=== PATIENT | male | born 1955 | race Caucasian/White ===

== ENCOUNTER 2019-08-18 14:21 | Inpatient (IN) | payer BC ==
[~2019-08-18] VITALS: Ht 182.9 cm; Wt 101.2 kg
[2019-08-18 14:28] VITALS: BP 146/77
[2019-08-18 14:29] VITALS: BP 146/77
[2019-08-18] MEDS ORDERED: METFORMIN HCL500 M3 PO (14:42)
[2019-08-18] MEDS ORDERED: JARDIANCE10 MG PO (14:43)
[2019-08-18] MEDS ORDERED: STATIN (14:43)
[2019-08-18 14:58] LABS: BASOPHILS 0.6 % (0.0-2.0); EOSINOPHILS 1.2 % (0.0-3.0); HEMATOCRIT 39.5 % (42.0-52.0); HEMOGLOBIN 13.7 gm/dL (14.0-18.0); LYMPHOCYTES 22.8 % (24.0-44.0); MCH 31.8 pg (26.0-34.0); MCHC 34.7 g/dL (28.0-37.0); MCV 91.6 fL (80.0-100.0); MONOCYTES 6.8 % (1.0-8.0); PLATELET COUNT 223 thou/uL (150-400); POLYS 68.6 % (36.0-66.0); RBC 4.31 mil/uL (4.50-6.00); RDW 13.3 % (10.5-14.5); WBC 5.9 thou/uL (4.0-11.0)
[2019-08-18 15:13] LABS: ANION GAP 12 mmol/L (7-16); BUN 19 mg/dL (7-18); CALCIUM 8.8 mg/dL (8.5-10.1); CHLORIDE 104 mmol/L (98-107); CO2 22 mmol/L (21-32); CREATININE 1.2 mg/dL (0.7-1.3); GLUCOSE 105 mg/dL (74-106); POTASSIUM 3.5 mmol/L (3.5-5.1); SODIUM 138 mmol/L (136-145)
[2019-08-18 15:22] LABS: ALBUMIN 4.1 g/dL (3.4-5.0); SGOT 61 U/L (15-37); SGPT 66 U/L (30-65); TOTAL BILIRUBIN 0.9 mg/dL (<0.1-1.0); TOTAL PROTEIN 7.2 g/dL (6.4-8.2); TROPONIN-I <0.06 ng/mL (<0.06)
[2019-08-18 16:59] VITALS: BP 141/72
--- NOTE | 2019-08-18 18:58 | H ---
[facility] [place] [address] HISTORY AND PHYSICAL Name: IRINEO MCCARTHY Room #: 170-8 ADM IN M.R.#: [id number] Admission: 08/18/19 Attend Phys: Isaiah Wilkerson, Discharge: Date of : 59 Report #: [id number] THIS REPORT FOR: cc: Ankit Horowitz David J. DO Clymer, David J. MD ~ CC: Ankit Jones DATE OF SERVICE: 08/18/2019 CHIEF COMPLAINT: Fractures right and left patella with open wound, right knee. HISTORY OF PRESENT ILLNESS: This active, independent, healthy and fit 63-year-old gentleman was working on a roof today when he fell about 11 feet. He landed hard on both knees resulting in bilateral knee injuries. He also has a rather minor left elbow contusion and abrasion, but has no other complaints of significant injury. He states he did strike his head and has a laceration over the left eyebrow. He had no loss of consciousness. He is not having any headache or any other significant neurologic symptoms or complaints at this time. At the time of my evaluation, he is accompanied by his spouse. He is alert and oriented and recalls the event. He states he has symptoms of both knees and the left forehead, but no other significant complaints. He is alert and oriented. The neck is currently protected with a cervical collar, but he seems to have no subjective discomfort with movement about the neck and has no subjective complaints there. The chest reveals no obvious injuries and he has no shortness of breath. The abdomen is soft and nontender. The pelvis is stable and nontender. He has no complaints in the lower back and no complaints about either the right or left hip. The upper extremities reveal good movement at the right shoulder, elbow, wrist and hand without discomfort. Neurologic status is normal. The left upper extremity reveals a small abrasion over the posterolateral aspect of the left elbow, but the elbow demonstrates good alignment, range of motion with good stability and no discomfort. The wrist and hand are normal. There is no evidence of significant injuries in either upper extremity. The right lower extremity reveals good movement at the hip without much joint pain. The thigh is stable and well aligned. The right knee demonstrates a transverse laceration over the patella. The patella appears to be fractured and displaced moderately. The knee itself demonstrates satisfactory alignment and satisfactory stability on varus and valgus stress. The lower leg, foot, and ankle appear to be normal. The left lower extremity also reveals good movement of the left hip without joint pain. The left knee demonstrates [place] [address] HISTORY AND PHYSICAL Name: IRINEO MCCARTHY Room #: 170-8 ADM IN M.R.#: [id number] Admission: 08/18/19 Attend Phys: Isaiah Wilkerson, Discharge: Date of : 59 Report #: [id number] over the anterior aspect of the knee and the patella is uncomfortable, but seems to be intact and stable. The knee is stable to varus and valgus stress. The lower leg, foot, and ankle appear to be normal. X-rays of the left knee reveal moderately comminuted patellar fracture, but without significant displacement. Joint surface alignment and overall alignment appears to be satisfactory. The bony architecture of the distal femur and the proximal tibia also appeared to be intact without any evidence of bony injury. The x-rays of the right knee reveal a comminuted transverse fracture in the mid patella with displacement and rotational deformity. The distal femur and proximal tibia appear to be intact without bony injury. IMPRESSION: Bilateral patellar fractures with a closed and generally stable fracture on the left side, but an open unstable fracture on the right side. I have discussed this with the patient and his . I have explained that the open right knee wound should go to the operating room whenever we can for a general debridement and irrigation. At this point, I think the wound appears to be mildly contaminated and probably would allow for repair of the patellar fracture at that time. He has no other apparent injuries and I think we will see if we can go either this evening or tomorrow morning for surgical repair. I am hoping that we can manage the opposite left patellar fracture in a nonsurgical fashion with splint protection and time. The patient's understand and wish to proceed with surgery whenever scheduling will allow. <ELECTRONICALLY SIGNED> By: Ankit Ocasio MD 08/18/19 1858 [id number] [id number] Ankit Ocasio MD /nt
[2019-08-18 19:40] VITALS: BP 139/75
[2019-08-18 22:55] LABS: URINE BILIRUBIN NEGATIVE (Negative); URINE BLOOD 2+ (Negative); URINE CLARITY CLEAR; URINE COLOR YELLOW; URINE GLUCOSE-RANDOM* 3+ (Negative); URINE KETONES 2+ (Negative); URINE LEUKOCYTES-REFLEX NEGATIVE (Negative); URINE NITRITE-REFLEX NEGATIVE (Negative); URINE PROTEIN (DIPSTICK) NEGATIVE (Negative); URINE UROBILINOGEN 0.2 E.U./dl (0.2-1.0)
[2019-08-18 23:03] LABS: AMP/METHAMP Negative (Negative); BARBITURATES Negative (Negative); BENZODIAZEPINES Negative (Negative); COCAINE Negative (Negative); METHADONE Negative (Negative); OPIATES POSITIVE (Negative); PCP Negative (Negative); URINE RBC 3-10 Few /HPF (0-2)
[2019-08-18 23:04] LABS: BACTERIA-REFLEX 1-9 Few /HPF (None Seen); CASTS None Seen /LPF (None Seen); CRYSTALS None Seen /LPF (None Seen); SQUAMOUS 0-3 Few /LPF (0-3); URINE WBC-REFLEX None Seen /HPF (0-5)
[2019-08-18 23:59] VITALS: BP 146/80
[2019-08-19 00:21] VITALS: BP 126/80
[2019-08-19 01:50] VITALS: BP 140/77
--- NOTE | 2019-08-19 02:55 | NUR ---
PT TO UNIT FROM PACU AROUND 1914. ORIENTED TO UNIT, STAFF AND USE OF CALL LIGHT. ADMISSION ASSESSMENT COMPLETED, CONSENTS SIGNED. PT REPORTS PAIN IN BOTH KNEES, MORE IN THE RIGHT KNEE. IV MEDICAITON AND PO TRIED WITH LITTLE RELIEF. IMMOBILIZER SHANTAL LEGS, WRAPPED IN MICHAEL BANDAGES WELL - BOTH D/C/I. ICE PACKS APPLIED. VSS. PT VOIDING USING THE URINAL. HAS STITCHES ABOVE LEFT EYEBROW. PT REPORTS THAT HIS FEET WILL FALL TO THE SIDE WHICH INCREASES THE PAIN, THIS NURSE PUT A WEDGE AND PILLOWS TO HOLD HIS FEET UP AND HE STATES IT HELPS A LOT. ATE A SANDWICH TONIGHT- TOLERATED WELL. 1/3 ANTIBIOTIC GIVEN. WILL CONTINUE WITH PAIN AIDAN PARIKH.
[2019-08-19 03:07] VITALS: BP 137/76
[2019-08-19 05:14] LABS: HEMATOCRIT 37.4 % (42.0-52.0)
[2019-08-19 05:26] LABS: POTASSIUM 4.7 mmol/L (3.5-5.1)
[2019-08-19 07:40] VITALS: BP 113/66
--- NOTE | 2019-08-19 12:01 | O ---
[facility] [place] [address] OPERATIVE REPORT Name: IRINEO MCCARTHY Room #: 438-P ADM IN M.R.#: [id number] Admission: 08/18/19 Attend Phys: Isaiah Wilkerson, Discharge: Date of : 59 Report #: [id number] THIS REPORT FOR: cc: Ankit Horowitz David J. DO Clymer, David J. MD ~ CC: Ankit Wilkerson DATE OF SERVICE: 08/18/2019 PREOPERATIVE DIAGNOSIS: Open comminuted fracture, right patella. POSTOPERATIVE DIAGNOSIS: Open comminuted fracture, right patella. PROCEDURES: Debridement and open reduction and internal fixation of right patellar fracture. SURGEON: Ankit Ocasio MD INDICATIONS: This healthy, active 63-year-old gentleman fell about 11 feet while repairing a roof injuring both patella. A comminuted, but nondisplaced fracture on the left side is treated nonsurgically. On the right, he has an open more severely comminuted and displaced fracture of the patella. We elected to go ahead with surgical repair. DESCRIPTION OF PROCEDURE: The patient was taken to the operating room where he was placed under general anesthesia. Prophylactic intravenous antibiotics were administered. The right knee wound had been previously thoroughly irrigated and cleansed in the Emergency Room and was once again irrigated and cleansed in the OR prior to the case. The right knee and leg were then meticulously prepped and draped. A thigh tourniquet was applied and inflated to 300 mmHg. The traumatic laceration is about 2-3 cm and fairly transverse across the mid patella. The skin edges here were excised and the incision was extended in a proximal and distal direction creating a long S-shaped incision. There was some damage to the subcutaneous tissues, which were also debrided. There was no apparent debris or contamination in the wound. The fracture was found to be quite comminuted and several pieces were loose and needed to be removed and discarded. The joint was inspected and no debris was identified. The joint and the area of fracture was aggressively irrigated with over 1 liter of antibiotic irrigation. The surfaces and soft tissues appeared to be clean without any contamination and I felt fixation and closure was most reasonable. Due to the comminution, a clearly anatomic and secure reduction was not feasible. The larger fragments were brought back into improved position and held initially with large bone clamps. There were several smaller fragments that were unstable and simply needed to be removed. Other areas of comminution made reduction and [address] [address] OPERATIVE REPORT Name: IRINEO MCCARTHY Room #: 438-P [facility] IN M.R.#: [id number] Admission: 08/18/19 Attend Phys: Isaiah Wilkerson, Discharge: Date of : 59 Report #: [id number] realignment somewhat difficult. Nevertheless, an adequate reduction was accomplished. This was then secured using four K wires passed in a vertical direction. These seemed to add nicely to the overall stability despite the degree of comminution. Once these were in place and secure, an 18-gauge wire was passed beneath the K wires just above and below the patella and crossed over the anterior aspect in a tension band wire configuration. Bone clamps were used to compress the fragments and the wire was tensioned gradually, which resulted in additional reduction and secure fixation of the fracture. C-arm was used to visualize the fracture fragments and the pins and wire, although there was still obvious fracture lines suggesting there was still an imperfect reduction. Overall, the reduction seemed adequate and the articular cartilage surfaces appear to be adequately aligned and seemed satisfactory when palpated digitally. The pins were then cut off at appropriate levels and the distal aspect of the pins bent to avoid migration. The tension band wire was cut and its tail was chipped down inward into one of the bony recesses to avoid skin pressure. The tourniquet was deflated. Good hemostasis was confirmed. The entire wound was further and copiously irrigated. The skin edges were then reapproximated using 2-0 Monocryl, the subcutaneous tissues and dawn in the skin. A sterile dressing was applied and a knee immobilizer brace placed holding the knee in full knee extension. At the conclusion of the right knee case, the left knee was once again inspected. There was rather significant abrasion on the anterior aspect of the knee and this was once again cleansed and then a sterile dressing applied. The patella itself, although comminuted on x-ray appears to be stable to palpation and I expect will heal in nicely with nonsurgical management. A knee immobilizer brace was placed on the left side as well. The patient was then awakened and returned to recovery room in good condition. <ELECTRONICALLY SIGNED> By: Ankit Ocasio MD 08/19/19 1201 [id number] Ankit Ocasio MD /nt
--- NOTE | 2019-08-19 14:31 | NUR ---
PT ADMITTED RELATED TO BILATERAL PATELLA FX'S S/P ORIF RT PATELLA. CM REVIEWED CHART AND SPOKE WITH CARE TEAM. CM CALLED AND SPOKE WITH PT OVER [facility] PHONE THIS AFTERNOON. PT APPEARED TO BE A&O X4. CM ROLE INTRODUCED. PT INDICATED THAT HE LIVES IN A HOUSE WITH IS WITH 1 STEPS TO ENTER AND THEN ALL NEEDS ON 1 LEVEL. PT WAS ISSUED A FWW FOR HOME USE BY PROVIDER [employer]US. PT TO HAVE HH PT, OT, AND NURSING. PT INDICATED NO PREFERENCE IN PROVIDER. REFERRAL TO BE SENT TO [facility]. CARE TEAM INDICATED THAT PT IS MEDICALLY STABLE TO DC HOME THIS DAY. PT'S SPOUSE TO PROVIDE TRANSPORT HOME.
[2019-08-19 14:42] VITALS: BP 113/66
--- NOTE | 2019-08-19 16:06 | NUR ---
ASSUMED CARE OF THE PT AT 0700. PT WORKED WITH PT 2X AND WAS CLEARED TO GO HOME. C/O NUMBNESS IN BOTH FEET, CAP REFILL LESS THAN 3, SKIN WARM TO TOUCH AND PT ABLE TO MOVE TOES. PAIN CONTROLLED BY PAIN MEDS, SEE EMAR. ICE PACKS ON BOTH KNEES. BS CONTROLLED BY INSULIN, SEE EMAR. R AC AND L HAND IV REMOVED. PT D/C'D TO HOME. PT WENT TO FILL RX'S AT [facility] AND PHARMACY STATED THAT THEY NEEDED "DOCTOR TO PRINT NAME ON THE SCRIPT". CALLED DOCTOR OFFICE AND SPOKE DOCTOR'S NURSE, THEY STATED, "WILL CALL PHARMACY, CONTACTED PT AND LET THEM KNOW. PT D/C'D
== END 2019-08-19 16:22 | disposition home health service (06) | DRG 517 ==
LOC: ER 14:21 → 4S 16:59 → ER 16:59 → EROBS 17:05 → 4S 17:05
PROVIDERS: Orthopaedic Surgery; Student in an Organized Health Care Education/Training Program; ADMIT Surgery
DX: S82.041B Displaced comminuted fracture of right patella, initial encounter for open fracture type I or II (principal); E11.9 Type 2 diabetes mellitus without complications; S82.042A Displaced comminuted fracture of left patella, initial encounter for closed fracture; E78.5 Hyperlipidemia, unspecified; E78.00 Pure hypercholesterolemia, unspecified; W18.30XA Fall on same level, unspecified, initial encounter; Y93.89 Activity, other specified; Y92.89 Other specified places as the place of occurrence of the external cause; Y99.8 Other external cause status; Z79.4 Long term (current) use of insulin; Z79.84 Long term (current) use of oral hypoglycemic drugs
CPT/HCPCS: 10100; 10195; 50101; 50386; 51275; 51412; 56525; 57091; 62110; 62900; 70005

== ENCOUNTER → 2020-06-15 | Outpatient (CLI) | payer BC ==
[~2020-06-15] MED LIST: JARDIANCE10 MG PO; METFORMIN HCL500 M3 PO; STATIN
== END ==
LOC: LAB 11:56
PROVIDERS: ATTEND Anesthesiology
DX: Z01.812 Encounter for preprocedural laboratory examination (principal); Z20.822 Contact with and (suspected) exposure to COVID-19

== ENCOUNTER → 2020-11-13 | Outpatient (CLI) | payer BC | LOC: SJCVCIMAG 08:39 | PROVIDERS: ATTEND Internal Medicine | DX: I34.0 Nonrheumatic mitral (valve) insufficiency (principal); I25.10 Atherosclerotic heart disease of native coronary artery without angina pectoris; R93.1 Abnormal findings on diagnostic imaging of heart and coronary circulation ==

== ENCOUNTER → 2020-11-23 | Outpatient (CLI) | payer BC | LOC: SJCVCIMAG 07:19 | PROVIDERS: ATTEND Internal Medicine | DX: R00.0 Tachycardia, unspecified (principal); I49.3 Ventricular premature depolarization; R06.00 Dyspnea, unspecified; R53.83 Other fatigue; R93.1 Abnormal findings on diagnostic imaging of heart and coronary circulation; E78.5 Hyperlipidemia, unspecified; E11.9 Type 2 diabetes mellitus without complications; Z79.82 Long term (current) use of aspirin; Z79.899 Other long term (current) drug therapy ==

== ENCOUNTER → 2020-12-03 | Outpatient (CLI) | payer BC ==
[~2020-12-03] VITALS: Ht 182.9 cm; Wt 95.3 kg
[~2020-12-03] MED LIST changes: +ASA81BEC PO; +LIPITOR40 MG PO; +METFORMIN HCL1000 MG PO; +REVATIO20 MG PO
[2020-12-03 08:31] VITALS: BP 123/69
--- NOTE | 2020-12-03 11:42 | CATHLAB ---
[facility] [address] INVASIVE PROCEDURE REPORT Name: IRINEO MCCARTHY Room #: REG SIMÓN Russell.#: [id number] Admission: 12/03/20 Attend Phys: Anthony Varghese MD Discharge: Date of : 59 Report #: [id number] THIS REPORT FOR: cc: Ankit Horowitz David J. DO Park, Jin S. MD ~ APPROVED REPORT Study performed: 12/03/2020 08:54:11 Patient Details Patient Status: Out-Patient Room #: The patient is a 65 year-old male Event Personnel Anthony Varghese Chocolate Refining Roller, Zoraida Marquez RTR Monitor, Abhilash Murillo RN RN, Tyrel Mccarthy RTR Scrub, Joanie Kidd RN fixed income trading vice president Performed Art Access - R femoral artery* Left Heart Cath w/or w/o Coronaries [id number] C Hemostasis w/ Mynx 80428 Initial Mod Sed Same Phys/QHP Gr5y [id number] Mod Sed Same Phys/QHP Ea [id number] Indication Dyspnea, Positive stress test Risk Factors HypercholesterolemiaPhysical Activity, Coronary Artery Disease, Diabetes Procedure Narrative The Right Groin^ was infiltrated with 1% Lidocaine subcutaneous anesthesia. A PINNACLE 4FR Sheath #[id number] sheath was inserted into the RFA^. Coronary angiography was performed using coronary diagnostic catheters. The right coronary system was accessed and visualized with a JR4 catheter. The left coronary system was accessed and visualized with a JL4 catheter. The left ventricle was accessed and visualized with a JL4 catheter. Hemostasis was obtained with manual pressure following sheath removal without any complications. The patient tolerated the procedure well and there were no complications associated with the procedure. There was no hematoma. [facility] [address] [place] [address] INVASIVE PROCEDURE REPORT Name: IRINEO MCCARTHY Room #: REG [facility]#: [id number] Admission: 12/03/20 Attend Phys: Anthony Varghese MD Discharge: Date of : 59 Report #: [id number] Intraoperative Conscious Sedation Sedation start time: 9:33 Case end Time: 10:02 Fentanyl 50 mcg Versed 1 mg Fluoro Time: 1.30 minutes Dose: DAP 4211.60 cGycm2 628 mGy Contrast Type and Amount: Omnipaque 55 ml Coronary Angiography The patient's coronary anatomy is right dominant. Diagnostic Cath Left Main The left main artery is a large-caliber vessel, appears angiographically normal. LAD The proximal LAD is ectatic with mild calcifications. There is mild disease in this area. The distal LAD terminates at the apex. Diagonal 1 This is a moderate-sized caliber vessel, patent with no flow-limiting lesions. Circumflex The proximal left circumflex artery is ectatic with mild disease. OM1 This is a moderate-sized caliber vessel, patent with no flow-limiting lesions. OM2 This is a small caliber vessel, patent with no flow-limiting lesions. Right Coronary The proximal and mid segments of the RCA are ectatic with mild disease. R PDA This is a moderate-sized caliber vessel, patent with no flow-limiting lesions. RPLV This is a moderate-sized caliber vessel, patent with no flow-limiting lesions. Left Ventriculography Left Ventriculography was not performed. Ejection Fraction was 50% based off patient's Echocardiogram. An LVEDP was measured and there is no gradient across the outflow tract. Hemodynamics The aortic pressure is 128/62 mmHg with a mean of 88 mmHg. The left ventricular pressure is 129/3 mmHg with a mean of mmHg. The left ventricular end diastolic pressure is 13 mmHg. Conclusion 1. There are ectatic segments in the epicardial vessels. [facility] [address] [place] [address] INVASIVE PROCEDURE REPORT Name: IRINEO MCCARTHY Room #: REG CL [facility]#: [id number] Admission: 12/03/20 Attend Phys: Anthony Varghese MD Discharge: Date of : 59 Report #: [id number] 2. There is mild, nonobstructive coronary artery disease. 3. This is a right dominant system. 4. There is lownormal LV systolic function. 5. Recommend guideline directed medical therapy. <ELECTRONICALLY SIGNED> By: Anthony Varghese MD 12/03/20 1142 1142 1142 Anthony Varghese MD /INF
== END | disposition home or self-care (01) ==
LOC: CATH 06:45
PROVIDERS: ATTEND Internal Medicine Cardiovascular Disease
DX: R94.39 Abnormal result of other cardiovascular function study (principal); I25.10 Atherosclerotic heart disease of native coronary artery without angina pectoris; R06.00 Dyspnea, unspecified; E78.00 Pure hypercholesterolemia, unspecified; E11.9 Type 2 diabetes mellitus without complications; E78.5 Hyperlipidemia, unspecified; Z98.890 Other specified postprocedural states; Z79.899 Other long term (current) drug therapy; Z90.49 Acquired absence of other specified parts of digestive tract; Z82.49 Family history of ischemic heart disease and other diseases of the circulatory system; Z79.82 Long term (current) use of aspirin